=== PATIENT | female | born 1995 | race Caucasian/White ===

== ENCOUNTER → 2017-12-22 | Outpatient (CLI) | payer BC ==
[~2017-12-22] VITALS: Ht 165.1 cm; Wt 114.3 kg
[2017-12-22 10:30] VITALS: BP 120/80
[2017-12-22] MEDS: LIDOCAINE 1% INJ 20 ML 20 ML VIAL INJ ONE (10:42)
[2017-12-22] MEDS: IOHEXOL 300 MG/ML 50 ML (OMNIPAQUE 300) VIAL IV ONE (10:57)
[2017-12-22] MEDS: GADOBUTROL 7.5 MMOL/7.5 ML (GADAVIST) VIAL IV ONE (10:57)
--- NOTE | 2017-12-22 12:28 | Diagnostic Imaging Report ---
MRI RT UPPER EXT JOINT WITH Technique: Multiplanar, multisequence MR imaging of the right shoulder was performed after direct intra-articular contrast administration. Comparison: Right shoulder radiographs of 12/11/2017. Indication: Right shoulder pain. Findings: Rotator cuff: No rotator cuff tear, tendinopathy or atrophy. Glenoid labrum: The glenoid labrum appears intact. No para-labral cyst. Long head of biceps: Long head of biceps is normally positioned within the bicipital groove. The intracapsular segment is intact. Bones and cartilage: Humeral head is normal in morphology without fracture or focal osseous lesion. No glenohumeral chondromalacia. The acromioclavicular joint is normal in alignment without significant degenerative change. Soft tissues: No proliferative synovitis or loose bodies in the glenohumeral joint. No MRI findings to suggest adhesive capsulitis. There is a small amount of fluid in the subacromial and subdeltoid space. IMPRESSION: 1. No rotator cuff tear. 2. Glenoid labrum is normal. 3. Long head of biceps is intact. 4. Small volume of fluid in the subacromial and subdeltoid space could relate to bursitis or recent therapeutic injection. Dictated by: Dictated on workstation # [id number]
--- NOTE | 2017-12-23 08:07 | Diagnostic Imaging Report ---
INDICATION: Shoulder pain. TECHNIQUE AND FINDINGS: The patient was placed on the table in supine position. The right right shoulder was prepped and draped utilizing maximal sterile technique. Local anesthesia was obtained with 2% lidocaine. Needle was advanced into the joint under fluoroscopic control. Approximately 10 cc of a mixture of saline, Isovue and gadolinium was infused. The needle was removed and adequate hemostasis was obtained. IMPRESSION: Successful right shoulder arthrogram prior to MRI, as described. Dictated by: Dictated on workstation # [id number]
== END ==
LOC: RAD 10:20
PROVIDERS: ATTEND Orthopaedic Surgery
DX: S43.431A Superior glenoid labrum lesion of right shoulder, initial encounter (principal)
CPT/HCPCS: 23350; 73040; 73222